=== PATIENT | female | born 1955 | race Caucasian/White ===

== ENCOUNTER 2022-01-07 16:00 | Emergency (ER) | payer MEDICARE ==
[~2022-01-07] VITALS: Ht 167.6 cm; Wt 61.2 kg
--- NOTE | 2022-01-07 16:00 | NUR ---
PT BIBPA FROM [facility] C/O FOREHEAD LAC S/P TRIP AND FALL. PT IS AAOX3, NOT IN RESPIRATORY DISTRESS, HOOKED TO V/S MONITOR. KEPT RESTED AND COMFORTABLE. WILL CONTINUE TO MONITOR.
--- NOTE | 2022-01-07 16:07 | NUR ---
SEEN AND EXAMINED BY .
--- NOTE | 2022-01-07 16:12 | NUR ---
PT IS WHEELED TO CT SCAN VIA [facility].
[2022-01-07] MEDS ORDERED: BACI/NEOM/POLY B OINT PKT 1 UDPKT PACKET ONE (16:14)
[2022-01-07] MEDS ORDERED: TDAP [DIPH/PERTUSSIS/TET] 0.5 ML VIAL IM ONE ×3 (16:14→16:30)
[2022-01-07] MEDS ORDERED: BACI/NEOM/POLY B OINT PKT 1 UDPKT PACKET TP ONE (16:30)
[2022-01-07] MEDS ORDERED: LIDOCAINE 1%-EPI 1:100,000 20 ML VIAL TP ONE (17:00)
--- NOTE | 2022-01-07 17:15 | NUR ---
SUTURING DONE BY MI SNOW.
--- NOTE | 2022-01-07 17:40 | NUR ---
[facility] CALLED FOR TRANSPORT ETA 45 MINS PER DANIEL.
--- NOTE | 2022-01-07 18:15 | NUR ---
REPORT GIVEN TO EMT FOR PT TRANSFER TO [facility].
[2022-01-07 18:35] VITALS: BP 121/68
== END 2022-01-07 18:35 | disposition home or self-care (01) ==
LOC: ER 16:03
DX: S01.81XA Laceration without foreign body of other part of head, initial encounter (principal); I10 Essential (primary) hypertension; K21.9 Gastro-esophageal reflux disease without esophagitis; E03.9 Hypothyroidism, unspecified; W01.0XXA Fall on same level from slipping, tripping and stumbling without subsequent striking against object, initial encounter; Y93.89 Activity, other specified; Y92.89 Other specified places as the place of occurrence of the external cause; Y99.8 Other external cause status; Z86.69 Personal history of other diseases of the nervous system and sense organs
CPT/HCPCS: 70450-TC; 90715